=== PATIENT | male | born 1980 | race Caucasian/White ===

== ENCOUNTER 2018-08-11 23:04 | Emergency (ER) | payer MEDICAID ==
[~2018-08-11] VITALS: Ht 182.9 cm; Wt 90.9 kg
[~2018-08-11 23:04] MED LIST: ALBU6.7H INH; AZIT250T PO; IBUP-1051 PO; NO HOME MEDS; PENI500T2 PO
[2018-08-11 23:13] VITALS: BP 142/87
[2018-08-12] MEDS ORDERED: PENI500T2 PO
[2018-08-12] MEDS ORDERED: TRAM50TA2 PO
[2018-08-12] MEDS ORDERED: acetaminophen 325mg tablet PO ONE
== END 2018-08-12 00:26 | disposition home or self-care (01) ==
LOC: ER 23:05
DX: K02.9 Dental caries, unspecified (principal); F17.200 Nicotine dependence, unspecified, uncomplicated; F12.90 Cannabis use, unspecified, uncomplicated; Z56.0 Unemployment, unspecified
CPT/HCPCS: 99282